=== PATIENT | female | born 1965 ===

== ENCOUNTER 2016-11-29 09:09 | Emergency (ER) | payer SELFPAY ==
[2016-11-29] MEDS ORDERED: HYDROcodone/Acetaminophen 10/325 mg Tablet ONE (09:39)
--- NOTE | 2016-11-29 10:06 | RAD ---
SACRUM THREE VIEWS: History: Fall, pain. Comparison: None. FINDINGS: Visualized bony pelvis is intact. Sacroiliac preserved. IMPRESSION: No fracture. POS: [facility]
== END 2016-11-29 10:11 | disposition home or self-care (01) ==
LOC: MADERS 09:09
DX: S30.0XXA Contusion of lower back and pelvis, initial encounter (principal); E78.5 Hyperlipidemia, unspecified; W22.8XXA Striking against or struck by other objects, initial encounter
CPT/HCPCS: 72220